=== PATIENT | male | born 1975 | race Caucasian/White ===

== ENCOUNTER 2024-08-28 06:47 | Emergency (ER) | payer OTHER, SELFPAY ==
[2024-08-28 06:51] VITALS: BP 154/105
[2024-08-28 07:04] VITALS: BP 149/91
[2024-08-28 07:23] VITALS: BMI 36.1
[2024-08-28] MEDS: NSS 1000 IV (07:33)
--- NOTE | 2024-08-28 07:47 | ED.GENMED ---
History of Present Illness
<Westley Arguelles Jr., PA-C - Last Filed: 08/29/24 18:15>
General
Chief Complaint: Heart Rate Problem
Source: patient
Exam Limitations: none
Time Seen by Provider: 08/28/24 07:02
Nursing documentation reviewed up to this point in time: agreed with
History of Present Illness
History of Present Illness:
49-year-old male presenting to the emergency department today with concerns of a racing pulse starting a few hours prior to arrival to the emergency department. Has had this to some degree over the past few weeks seems to improve after a few
minutes but today was ongoing for a few hours at this point. No specific chest pain no recent trauma surgery immobilization no history of blood clots. Does have a history of palpitations in the past but was unsure of the specific diagnosis was
previously on medication for but did not have symptoms for many years and has not followed up since. He denies any recent illness recent smoking drinking or drug use.
Review of Systems
<Westley Arguelles Jr., PA-C - Last Filed: 08/29/24 18:15>
Review of Systems
Allergies reviewed?: Yes
All Other Systems: ROS reviewed and negative except as documented in HPI and ROS
Phy Exam
<Westley Arguelles Jr., PA-C - Last Filed: 08/29/24 18:15>
Physical Exam
Physical Exam:
GENERAL: Alert , in no apparent distress
EYE: pupils equal and reactive
NECK: Supple, no significant adenopathy.
ENT: o/p clr, mmm.
CARDIAC: Tachycardic rate normal rhythm
LUNGS: Clear breath sounds bilaterally, no acute respiratory distress, no wheezes/rales/rhonchi
ABDOMEN: Soft, without focal tenderness, no r/g, no cvat
NEUROLOGICAL: Alert and oriented, no focal neuro deficits
SKIN: Warm and dry, skin intact.
MUSCULOSKELETAL: No edema, well perfused.
PSYCH: Normal and appropriate interaction.
Course
<Westley Arguelles Jr., PA-C - Last Filed: 08/29/24 18:15>
Orders/Labs/Results
Orders:
Orders
08/28/24 06:54
Electrocardiogram (*1) Urgent
Reason for Study: Chest Pain
EKG- Treatment ONCE
08/28/24 07:06
Cardiac Monitoring- Treatment ONCE
0.9% Sodium Chloride 1000 ml [Nss] 1,000 ml IV BOLUS
CR Chest - 2 Views Urgent
Comment:
Reason For Exam: palps, cp
08/28/24 07:31
Complete Blood Count/With Diff Urgent
Comprehensive Metabolic Panel Urgent
D-Dimer Urgent
Magnesium Urgent
TSH Urgent
Troponin I Urgent
08/28/24 08:14
CT Chest PE Study Urgent
Comment:
Reason For Exam: elevated dimer
08/28/24 09:46
EKG [Electrocardiogram (*1)] Urgent
Reason for Study: Palpitations
EKG- Treatment ONCE
Abnormal Lab Results
08/28/24
07:31
Absolute Lymphs (auto) 0.3 L 10^3/uL
(1.2-3.4)
Neutrophils % 81.3 H %
(42.2-75.2)
Lymphocytes % 6.0 L %
(20.5-51.1)
Monocytes % 12.1 H %
(1.7-9.3)
D-Dimer 0.79 H ug/mlFEU
(0.00-0.50)
Glucose 129 H mg/dl
(70-99)
ALT 72 H U/L
(0-50)
08/28/24 07:31
08/28/24 07:31
Vital Signs
Initial and Last Documented VS:
Initial Vital Signs
Temp Pulse Resp BP Pulse Ox
99.2 F 142 20 154/105 99
08/28/24 06:51 08/28/24 06:51 08/28/24 06:51 08/28/24 06:51 08/28/24 06:51
Last Documented Vital Signs
Temp Pulse Resp BP Pulse Ox
99.2 F 114 19 147/86 97
08/28/24 06:51 08/28/24 09:00 08/28/24 09:00 08/28/24 11:00 08/28/24 11:00
<Edita Levine MD - Last Filed: 08/28/24 10:55>
Orders/Labs/Results
Orders:
Orders
08/28/24 06:54
Electrocardiogram (*1) Urgent
Reason for Study: Chest Pain
EKG- Treatment ONCE
08/28/24 07:06
Cardiac Monitoring- Treatment ONCE
0.9% Sodium Chloride 1000 ml [Nss] 1,000 ml IV BOLUS
CR Chest - 2 Views Urgent
Comment:
Reason For Exam: palps, cp
08/28/24 07:31
Complete Blood Count/With Diff Urgent
Comprehensive Metabolic Panel Urgent
D-Dimer Urgent
Magnesium Urgent
TSH Urgent
Troponin I Urgent
08/28/24 08:14
CT Chest PE Study Urgent
Comment:
Reason For Exam: elevated dimer
08/28/24 09:46
EKG [Electrocardiogram (*1)] Urgent
Reason for Study: Palpitations
EKG- Treatment ONCE
Abnormal Lab Results
08/28/24
07:31
Absolute Lymphs (auto) 0.3 L 10^3/uL
(1.2-3.4)
Neutrophils % 81.3 H %
(42.2-75.2)
Lymphocytes % 6.0 L %
(20.5-51.1)
Monocytes % 12.1 H %
(1.7-9.3)
D-Dimer 0.79 H ug/mlFEU
(0.00-0.50)
Glucose 129 H mg/dl
(70-99)
ALT 72 H U/L
(0-50)
08/28/24 07:31
08/28/24 07:31
Vital Signs
Initial and Last Documented VS:
Initial Vital Signs
Temp Pulse Resp BP Pulse Ox
99.2 F 142 20 154/105 99
08/28/24 06:51 08/28/24 06:51 08/28/24 06:51 08/28/24 06:51 08/28/24 06:51
Last Documented Vital Signs
Temp Pulse Resp BP Pulse Ox
99.2 F 114 19 147/86 97
08/28/24 06:51 08/28/24 09:00 08/28/24 09:00 08/28/24 11:00 08/28/24 11:00
<Westley Arguelles Jr., PA-C - Last Filed: 08/29/24 18:15>
MDM/Problems Addressed
MDM/Problems Addressed:
49-year-old male presenting to the emergency department today with concerns of palpitations starting this more denies chest pain shortness of breath recent illness no risk factors for PE no chest pain. No recent ingestion caffeine use or any
specific explanation for current symptoms. Did have similar palpitations a decade ago however is unsure of the diagnosis with the treatment at the time and has fallen out of follow-up due to lack of symptoms for many years. Here patient seems to
be in sinus with a rate between 120 and 130. Patient no distress during examination. No additional symptoms. Here heart rate improving after liter of fluid to the low 100s D-dimer ended up being elevated CT PE did not show any emergent findings
no abnormalities to the aorta. Patient here without significant ongoing symptoms advised for close cardiology follow-up. Return precautions given.
<Westley Arguelles Jr., PA-C - Last Filed: 08/29/24 18:15>
*Critical Care Note
Total Time (30-74mins, 75-104mins- exclusive of procedures): Not Applicable
ED Attending Note
<Westley Arguelles Jr., PA-C - Last Filed: 08/29/24 18:15>
-
Portions of this chart may have been created with voice recognition software.� Occasional wrong word or��sound alike� substitutions may have occurred due to the inherent limitations of voice recognition software.
<Edita Levine MD - Last Filed: 08/28/24 10:55>
ED Attending Note
Patient seen and examined by attending physician: Yes
I performed the substantive portion of visit, reviewed & personally made and approve the management plan that is documented in note by myself or YOHANNES.: Yes
ED Attending Note:
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 For the last week he has had episodes 'now and again' when he wakes up or sits up
where he feels like his heart is racing but resolves in 30 minutes. However, around 1 AM, symptoms began again and have not gone away which prompted his visit here. He denies associated dyspnea, leg edema, chest pain or pressure. He is a
non-smoker, no recent immobilization trauma surgery or other PE risk factors. While here, heart rate has spontaneously come down to the 110s and he feels better. Heart regular rate and rhythm, lungs CTA. Workup pending, he is reluctant to start
beta-blockers given the unfortunate side effects that he experienced in the past. Likely discharge with cardiology follow-up assuming workup here unremarkable. Very well-appearing, low suspicion for ischemia based on ECG and history.
Discharge Plan
Departure
Patient Disposition: Home (Routine Discharge)
Date of Disposition: 08/28/24
Time of Disposition: 10:54
Patient with high blood pressure during this ER visit?: No
Condition: Good
Covid-19: Not Applicable
Discharge Problem:
Palpitations
Instructions: Palpitations (DC), Chest Pain CBC Follow Up
Prescriptions:
New
metoprolol tartrate 25 mg tablet
12.5 mg PO BID PRN (Reason: palpitations) Qty: 7 0RF
No Action
tramadol 50 MG tablet
50 mg PO Q6HPRN PRN (Reason: pain) Qty: 10 0RF
tamsulosin 0.4 MG capsule
0.4 mg PO DAILY Qty: 6 0RF
diclofenac sodium 75 MG tablet,delayed release (DR/EC)
75 mg PO BID Qty: 10 0RF
Referrals:
Pj Becker MD [Active] - Next open appointment
Adán Kent MD [Family Provider] -
Activity Restrictions/Additional Instructions:
You came to the emergency department today with concerns of palpitations. Here you had a reassuring assessment please follow closely with cardiology. Return to the emergency department for any worsening, new or concerning symptoms.
Interventions
Interventions:
*Risk Screen - Suicide Last Done: 08/28/24 06:51
*General Assessment Last Done: 08/28/24 06:51
*Neglect/Abuse Screening Last Done: 08/28/24 06:51
ED- Fall Risk Assessment Last Done: 08/28/24 07:00
*Nursing Disposition Last Done: 08/28/24 11:13
ED- Cardiac Assessment Last Done: 08/28/24 07:00
ED- Pulmonary Assessment Last Done: 08/28/24 07:00
Discharge Date and Time
Discharge Date/Time: 08/28/24 11:13
Print Language: SERBIAN
[2024-08-28 08:01] LABS: % Basophils 0.2 % (0-2); % Eosinophils 0.2 % (0-6); % Immature Granulocytes 0.2 % (0-0.5); % Monocytes 12.1 % (1.7-9.3); % Neutrophils 81.3 % (42.2-75.2); Absolute Lymphocytes 0.3 10^3/uL (1.2-3.4); Absolute Monocytes 0.6 10^3/uL (0.1-0.6); Absolute Neutrophils 4.3 10^3/uL (1.4-6.5); Hematocrit 44.3 % (39.0-52.0); Mean Corp Hgb Conc. 33.9 g/dL (33.0-37.0); Mean Corpuscular Hgb 30.5 pg (27.0-31.0); Mean Corpuscular Volume 90.2 fL (80.0-94.0); Mean Platelet Volume 8.9 fL (7.4-10.4); Nucleated Red Blood Cells % 0 % (-); Platelet Count 177 10^3/uL (130-400); Red Blood Cell Count 4.91 10^6/uL (4.70-6.10); Red Cell Dist. Width 13.4 % (11.5-14.5); White Blood Cell Count 5.3 10^3/uL (4.8-10.8)
[2024-08-28 08:03] LABS: D-Dimer 0.79 ug/mlFEU (0.00-0.50)
[2024-08-28 08:06] LABS: ALT (SGPT) 72 U/L (0-50); AST (SGOT) 43 U/L (17-59); Albumin 4.3 g/dl (3.5-5.0); Alkaline Phosphatase 80 U/L (38-126); Blood Urea Nitrogen 11 mg/dl (9-20); Carbon Dioxide 25 mmol/L (22-30); Chloride 104 mmol/L (98-107); Estimated Creatinine Clearance > 125 ml/min; Glucose 129 mg/dl (70-99); Magnesium 1.9 mg/dl (1.6-2.3); Sodium 137 mmol/L (135-145); Total Bilirubin 0.5 mg/dl (0.2-1.3); Total Protein 7.6 g/dl (6.3-8.2); eGFR > 60.00
[2024-08-28 08:17] VITALS: BP 136/93
[2024-08-28 08:18] LABS: Troponin I < 0.012 ng/ml
[2024-08-28 08:36] LABS: TSH 1.19 uIU/ml (0.47-4.68)
[2024-08-28 09:00] VITALS: BP 144/85
[2024-08-28 10:21] VITALS: BP 142/81
[2024-08-28 11:00] VITALS: BP 147/86
== END 2024-08-28 11:13 | disposition home or self-care (01) ==
LOC: EMR 06:47
PROVIDERS: Physician Assistant; EMERGENCY PHYSICIAN Emergency Medicine; FAMILY PHYSICIAN Family Medicine
DX: R00.2 Palpitations (principal); R79.1 Abnormal coagulation profile
CPT/HCPCS: 99285; 96360; 71046; 71275; 80053; 83735; 84443; 84484; 85025; 85379; 93005; Q9967